=== PATIENT | male | born 1990 ===

== ENCOUNTER 2023-10-19 18:16 | Emergency (ER) | payer SELFPAY ==
[2023-10-19 18:25] VITALS: BP 145/101
[2023-10-19] MEDS: PEN VK 500 MG PO (19:49)
[2023-10-19 19:50] VITALS: BP 126/87
--- NOTE | 2023-10-19 23:27 | ED.GENMED ---
History of Present Illness
General
Chief Complaint: Oral/Mouth Problem
Source: patient
Exam Limitations: none
Time Seen by Provider: 10/19/23 18:55
Nursing documentation reviewed up to this point in time: agreed with
History of Present Illness
History of Present Illness:
Patient to ED with complaint of dental pain to right upper lateral incisor. States he had root canal started on tooth but did not return to comlete procedure. Pain is now worsening. Denies fever/chills. Brought self to ED for eval.
Past History
Past History
ED Past Medical History: None
ED Past Surgical History: None
Review of Systems
Review of Systems
Allergies reviewed?: Yes
All Other Systems: ROS reviewed and negative except as documented in HPI and ROS
Constitutional: Reports no symptoms
EENT: Reports mouth pain (Pain to right upper lateral incisior)
Respiratory: Reports no symptoms
Cardiac: Reports no symptoms
Musculoskeletal: Reports no symptoms
Skin: Reports no symptoms
Neurological: Reports no symptoms
Psychiatric: Reports no symptoms
Phy Exam
General Physical Exam
General Presentation: well appearing and no apparent distress
General age: appears stated age
General Skin: warm and dry
General Habitus: normal
General Mental: alert
ENT Exam
ENT Exam: other (painful right upper lateral incisor. No gingival swelling. No evidenc of abcess)
Musculoskeletal Exam
Musculoskeletal Exam: full ROM and neuro vasc intact
Skin Exam
Skin Exam: normal color, warm/dry and no rash
Psychiatric Exam
Psychiatric Exam: normal mood/affect
Course
Orders/Labs/Results
Orders:
Orders
10/19/23 19:43
Penicillin V Potassium [Pen Vk] 500 mg PO NOW STA
Vital Signs
Initial and Last Documented VS:
Initial Vital Signs
Temp Pulse Resp BP Pulse Ox
98.1 F 56 16 145/101 98
08/06/24 18:25 10/19/23 18:25 10/19/23 18:25 10/19/23 18:25 10/19/23 18:25
Last Documented Vital Signs
Temp Pulse Resp BP Pulse Ox
98.1 F 56 16 126/87 98
10/19/23 18:25 10/19/23 18:25 10/19/23 18:25 10/19/23 19:50 10/19/23 18:25
*Critical Care Note
Total Time (30-74mins, 75-104mins- exclusive of procedures): Not Applicable
ED Attending Note
-
Portions of this chart may have been created with voice recognition software.� Occasional wrong word or��sound alike� substitutions may have occurred due to the inherent limitations of voice recognition software.
Discharge Plan
Departure
Patient Disposition: Home (Routine Discharge)
Date of Disposition: 10/19/23
Time of Disposition: 19:43
Patient with high blood pressure during this ER visit?: No
Condition: Good
Covid-19: Not Applicable
Discharge Problem:
Pain, dental
Instructions: Dental Pain (DC)
Prescriptions:
New
penicillin V potassium 500 mg tablet
500 mg PO Q6H 10 Days Qty: 40 0RF
Referrals:
NONE,* [Family Provider] -
Activity Restrictions/Additional Instructions:
Follow up with your dentist this week.
Interventions
Interventions:
*Risk Screen - Suicide Last Done: 10/19/23 19:51
*General Assessment Last Done: 10/19/23 19:51
*Neglect/Abuse Screening Last Done: 10/19/23 19:51
ED- Fall Risk Assessment Last Done: 10/19/23 19:51
*ED COVID-19 Vaccine History Last Done: 10/19/23 19:51
*Nursing Disposition Last Done: 10/19/23 19:51
Discharge Date and Time
Discharge Date/Time: 10/19/23 19:51
Print Language: BRITISH
== END 2023-10-19 19:51 | disposition home or self-care (01) ==
LOC: EMR 18:16
PROVIDERS: EMERGENCY PHYSICIAN Student in an Organized Health Care Education/Training Program
DX: K08.89 Other specified disorders of teeth and supporting structures (principal)
CPT/HCPCS: 99282